=== PATIENT | female | born 1975 | race Caucasian/White ===

== ENCOUNTER → 2023-11-04 09:17 | Outpatient (REF) | payer OTHER, SELFPAY | LOC: RCS 09:17 | PROVIDERS: FAMILY PHYSICIAN Nurse Practitioner Adult Health | DX: I25.2 Old myocardial infarction (principal); E78.00 Pure hypercholesterolemia, unspecified | CPT/HCPCS: 93017; 93306 ==

== ENCOUNTER → 2024-04-25 07:48 | Outpatient (REF) | payer BC, SELFPAY | LOC: WDC 07:48 | PROVIDERS: ATTENDING PHYSICIAN Nurse Practitioner Adult Health | DX: Z12.31 Encounter for screening mammogram for malignant neoplasm of breast (principal) | CPT/HCPCS: 77063; 77067 ==

== ENCOUNTER → 2025-03-07 10:27 | Outpatient (REF) | payer OTHER, SELFPAY ==
[2025-03-09 12:54] LABS: Varicella Zoster IgG (VZV) Negative
== END ==
LOC: OHS 10:27
PROVIDERS: ATTENDING PHYSICIAN Nurse Practitioner Family
DX: Z23 Encounter for immunization (principal)
CPT/HCPCS: 36415; 86480; 86787

== ENCOUNTER → 2025-05-04 13:07 | Outpatient (REF) | payer BC, SELFPAY | LOC: WDC 13:07 | PROVIDERS: ATTENDING PHYSICIAN Nurse Practitioner Adult Health; FAMILY PHYSICIAN Registered Nurse | DX: Z12.31 Encounter for screening mammogram for malignant neoplasm of breast (principal) | CPT/HCPCS: 77063; 77067 ==